=== PATIENT | female | born 1945 | race Caucasian/White ===

== ENCOUNTER 2021-08-01 10:34 | Outpatient (REF) | payer OTHER, SELFPAY ==
[2021-08-01 22:12] LABS: Hemoglobin A1C 6.1 % (<5.7)
[2021-08-01 22:17] LABS: ALT 36 U/L (14-59); AST 24 U/L (15-37); Albumin 3.9 g/dL (3.4-5.0); Alkaline Phosphatase 87 U/L (46-116); Anion Gap 7.5 mmol/L (3-11); BUN 15 mg/dL (7-18); Bilirubin, Total 0.6 mg/dL (0.2-1.0); CO2 28.5 mmol/L (21.0-32.0); CREATININE 0.8 mg/dL (0.55-1.02); Calcium 8.9 mg/dL (8.5-10.1); Calculated LDL 91 mg/dL (<100); Chloride 105 mmol/L (98-107); Cholesterol 187 mg/dL (<200); Glucose 111 mg/dL (74-106); HDL Cholesterol 56 mg/dL (40-60); Potassium 3.7 mmol/L (3.5-5.1); Sodium 141 mmol/L (136-145); Total Protein 6.7 g/dL (6.4-8.2); Triglyceride 201 mg/dL (<150)
== END 2021-08-01 10:35 | disposition home or self-care (01) ==
LOC: NCHCN 10:34
PROVIDERS: Visit Provider Nurse Practitioner Family
DX: I10 Essential (primary) hypertension (principal); E78.5 Hyperlipidemia, unspecified
CPT/HCPCS: 80053; 80061; 83036

== ENCOUNTER 2022-07-10 15:50 | Outpatient (REF) | payer MEDICARE, SELFPAY ==
[2022-07-10 20:33] LABS: ALT 41 U/L (14-59); AST 31 U/L (15-37); Albumin 4.2 g/dL (3.4-5.0); Alkaline Phosphatase 93 U/L (46-116); Anion Gap 8.6 mmol/L (3-11); BUN 12 mg/dL (7-18); Bilirubin, Total 0.5 mg/dL (0.2-1.0); CO2 29.4 mmol/L (21.0-32.0); CREATININE 0.8 mg/dL (0.55-1.02); Calcium 9.8 mg/dL (8.5-10.1); Chloride 105 mmol/L (98-107); Estimated GFR 76.31 (mL/min/1.73m2); Glucose 116 mg/dL (74-106); Potassium 3.7 mmol/L (3.5-5.1); Sodium 143 mmol/L (136-145); Total Protein 7.6 g/dL (6.4-8.2)
== END 2022-07-10 15:51 | disposition home or self-care (01) ==
LOC: NCHCN 15:50
PROVIDERS: Visit Provider Nurse Practitioner Family
DX: I10 Essential (primary) hypertension (principal)
CPT/HCPCS: 80053

== ENCOUNTER 2022-07-24 09:26 | Outpatient (REF) | payer MEDICARE, SELFPAY ==
[2022-07-24 19:57] LABS: Calculated LDL 56 mg/dL (<100); Cholesterol 170 mg/dL (<200); HDL Cholesterol 57 mg/dL (40-60); Triglyceride 289 mg/dL (<150)
== END 2022-07-24 09:27 | disposition home or self-care (01) ==
LOC: NCHCN 09:26
PROVIDERS: Visit Provider Physician Assistant
DX: E78.5 Hyperlipidemia, unspecified (principal)
CPT/HCPCS: 80061

== ENCOUNTER 2022-09-03 18:30 | Outpatient (REF) | payer MEDICARE, SELFPAY ==
--- OUTSIDE RECORDS SUMMARY | 2022-09-03 18:33 | XMS_ITS | Continuity of Care Document ---
Author Name Unknown Organization [facility] Address [address] [place] [address] Care Team Providers Care [employer] Power [employer] Manager Name Role Phone Angella Shah Primary Care Physician Encounter [facility] Date(s): 07/24/22 - 07/24/[address] [phone] Discharge Disposition: Home or Self Care Attending Physician: Angella Shah ARMHOLE PRESSER Admitting Physician: Angella Shah NP Referring Physician: Angella Shah ARMHOLE PRESSER Allergies, Adverse Reactions, Alerts Substance Reaction Severity Status penicillins Unknown Active sulfa drugs Unknown Active Assessment and Plan Future Appointments Immunizations Given and Recorded Vaccine Date Status Refusal Reason SARS-CoV-2 (COVID-19) mRNA-1273 vaccine 08/23/20 R ecorded SARS-CoV-2 (COVID-19) mRNA-1273 vaccine 07/26/20 R ecorded influenza virus vaccine, live 04/02/19 Recorded influenza virus vaccine, live 04/01/18 Recorded rubella virus vaccine 05/19/00 Recorded varicella virus vaccine 05/19/00 Recorded Social History Social History Type Response Sex Female Patient Care team information Care Team Personnel Name: Angella Shah ARMHOLE PRESSER Position: PowerChart View Only Member Role: Primary Care Physician Address: Address: [address] [place] [address] [place], [place] [address] Care Team Related Persons Name: ALYSHA LE Address: Home
--- OUTSIDE RECORDS SUMMARY | 2022-09-03 18:33 | XMS_ITS | Continuity of Care Document ---
Author Name Unknown Organization [facility] Address [address] [place] [address] Care Team Providers Care Rug Hooker Name Role Phone Angella Shah Primary Care Physician Encounter [facility] Date(s): 07/16/22 - 07/16/[address] [phone] Discharge Disposition: Home or Self Care Attending Physician: Angella Shah RESEARCH COMPLIANCE SPECIALIST Admitting Physician: Angella Shah RESEARCH COMPLIANCE SPECIALIST Referring Physician: Angella Shah RESEARCH COMPLIANCE SPECIALIST Allergies, Adverse Reactions, Alerts Substance Reaction Severity [...] information Care Team Personnel Name: Angella Shah RESEARCH COMPLIANCE SPECIALIST Position: PowerChart View Only Member Role: Primary Care Physician Address: Address: [address] [place], [place] [address] Care Team Related Persons Name: ALYSHA LE Address: Home
--- OUTSIDE RECORDS SUMMARY | 2022-09-03 18:33 | XMS_ITS | Continuity of Care Document ---
Author Name Unknown Organization [facility] Address [address] [place] [address] Care Team Providers Care News Broadcaster Name Role Phone Angella Shah Primary Care Physician Encounter [facility] Date(s): 08/21/22 - 08/22/[address] [phone] [place] Encounter Diagnosis Urinary retention(Discharge Diagnosis) - 08/21/22 Fecal impaction in rectum(Discharge Diagnosis) - 08/22/22 External hemorrhoids(Discharge Diagnosis) - 08/21/22 Hypokalemia(Discharge Diagnosis) - 08/22/22 HTN (hypertension)(Discharge Diagnosis) - 08/22/22 HLD (hyperlipidemia)(Discharge Diagnosis) - 08/22/22 GERD (gastroesophageal reflux disease)(Discharge Diagnosis) - 08/22/22 Chronic constipation(Discharge Diagnosis) - 08/22/22 Leukocytosis(Discharge Diagnosis) - 08/22/22 Discharge Disposition: Home or Self Care Attending Physician: Zhang Shaver MD Admitting Physician: Loida Huber NP Allergies, Adverse Reactions, Alerts Substance Reaction Severity Status penicillins Unknown Active sulfa drugs Unknown Active Assessment and Plan Future Appointments Functional Status 08/22/22 Living Environment No Living Environmen t Information Available Lives In Apartment Lives With Alone Living Situation Home independently Home Barriers None Patient's Responsibilities Driving, utilization management um nurse, Home management, Housework, Laundry, Meal preparation, Personal ADL 08/22/22 Breakfast Percent 25 08/21/22 Family Member Travel History No recent t ravel Recent Travel History No recent travel Other exposure to Infectious Disease Non e Immunizations Given and Recorded Vaccine Date Status Refusal Reason SARS-CoV-2 (COVID-19) mRNA-1273 vaccine 08/23/20 R ecorded SARS-CoV-2 (COVID-19) mRNA-1273 vaccine 07/26/20 R ecorded influenza virus vaccine, live 04/02/19 Recorded influenza virus vaccine, live 04/01/18 Recorded rubella virus vaccine 05/19/00 Recorded varicella virus vaccine 05/19/00 Recorded Medications Centrum Silver Ultra Women's 1 tab, Oral, Daily, 0 Refill(s) Start Date: 08/21/22 Status: Ordered hydroCHLOROthiazide 12.5 mg =, Oral, Daily, in AM, 0 Refill(s) Start Date: 08/21/22 Status: Ordered losartan 50 mg oral tablet 50 mg = 1 tab, Oral, Daily, 0 Refill(s) Start Date: 08/22/22 Status: Ordered omeprazole 20 mg oral delayed release tablet 20 mg = 1 tab, Oral, Daily, # 30 tab, 0 Refill(s), other reason (Rx) Start Date: 08/22/22 Stop Date: 09/21/22 Status: Ordered simvastatin 40 mg =, Oral, every night at bedtime, 0 Refill(s) Start Date: 08/21/22 Status: Ordered Problem List Condition Confirmation Course Effective Dates Status Health St [facility] Informant Chronic constipation Confirmed Active GERD (gastroesophageal reflux disease) Confirmed Active HLD (hyperlipidemia) Confirmed Active HTN (hypertension) Confirmed Active Results Laboratory List Name Date Automated Diff 08/22/22 CBC w/ Diff 08/22/22 Comprehensive Metabolic Panel 08/22/22 Magnesium Level 08/22/22 Basic Metabolic Panel (BMP) 08/22/22 Magnesium Level 08/21/22 SARS-CoV-2 (COVID-19) RNA (ID Now) 3 Urinalysis with Micro if Indicated and C ulture if Indicated 08/21/22 .Manual Differential ([facility]) 08/21/22 CBC w/ Diff 08/21/22 Comprehensive Metabolic Panel 08/21/22 Lactic Acid 08/21/22 Lipase Level 08/21/22 Most recent to oldest [Reference Range]: 1 2 3 WBC [5.0-10.0 x10^3/mcL] 11.4 x10^3/mcL *HI* (08/22/22 6:55 AM) 15.0 x10^3/mcL *HI* (08/21/22 3:22 PM) RBC [4.1-5.3 x10^6/mcL] 4.4 x10^6/mcL (08/22/22 6:55 AM) 4.7 x10^6/mcL (08/21/22 3:22 PM) Segs Man [40-75 %] 89 % *HI* (08/21/22 3:22 PM) Lymph Man [20-50 %] 5 % *LOW* (08/21/22 3:22 PM) Neutro Auto [40.0-75.0 %] 78.2 % *HI* (08/22/22 6:55 AM) Lymph Auto [20.0-50.0 %] 13.9 % *LOW* (08/22/22 6:55 AM) [place] Auto [2.0-15.0 %] 7.1 % (08/22/22 6:55 AM) Basophil Auto [0.0-1.0 %] 0.3 % (08/22/22 6:55 AM) [place] Man 4 % *NA* (08/21/22 3:22 PM) Eos Man 0 % *NA* (08/21/22 3:22 PM) BUN [7-18 mg/dL] 11 mg/dL (08/22/22 6:55 AM) 11 mg/dL (08/22/22 2:00 AM) 16 mg/dL (08/21/22 3:22 PM) UA Color Yellow (08/21/22 3:36 PM) Glucose Level [74-106 mg/dL] 128 mg/dL *HI* (08/22/22 6:55 AM) 119 mg/dL *HI* (08/22/22 2:00 AM) 148 mg/dL *HI* (08/21/22 3:22 PM) Potassium Level [3.5-5.1 mmol/L] 3.6 mmol/L (08/22/22 6:55 AM) 5.1 mmol/L (08/22/22 2:00 AM) 2.9 mmol/L *LOW* (08/21/22 3:22 PM) MCV [80.0-96.0] 90.4 (08/22/22 6:55 AM) 90.1 (08/21/22 3:22 PM) UA Urobilinogen Normal (08/21/22 3:36 PM) RBC Morph Normal (08/21/22 3:22 PM) UA Bili [Negative] Negative (08/21/22 3:36 PM) UA Ketones 1+ *ABN* (08/21/22 3:36 PM) AST [15-37 unit/L] 24 unit/L (08/22/22 6:55 AM) 29 unit/L (08/21/22 3:22 PM) ALT [14-59 unit/L] 36 unit/L (08/22/22 6:55 AM) 38 unit/L (08/21/22 3:22 PM) MCHC [31.0-35.0 g/dL] 35.1 g/dL *HI* (08/22/22 6:55 AM) 34.5 g/dL (08/21/22 3:22 PM) Sodium Level [136-145 mmol/L] 139 mmol/L (08/22/22 6:55 AM) 139 mmol/L (08/22/22 2:00 AM) 136 mmol/L (08/21/22 3:22 PM) UA Leuk Est Negative (08/21/22 3:36 PM) UA Nitrite Negative (08/21/22 3:36 PM) UA Glucose [Negative] Negative (08/21/22 3:36 PM) Hct [37.0-47.0 %] 39.6 % (08/22/22 6:55 AM) 42.0 % (08/21/22 3:22 PM) Lipase Level [16-77 unit/L] 34 unit/L (08/21/22 3:22 PM) Calcium Level [8.5-10.1 mg/dL] 8.6 mg/dL (08/22/22 6:55 AM) 8.2 mg/dL *LOW* (08/22/22 2:00 AM) 9.0 mg/dL (08/21/22 3:22 PM) Albumin Level [3.4-5.0 g/dL] 3.5 g/dL (08/22/22 6:55 AM) 3.9 g/dL (08/21/22 3:22 PM) Protein Total [6.4-8.2 g/dL] 6.7 g/dL (08/22/22 6:55 AM) 7.2 g/dL (08/21/22 3:22 PM) UA Protein Negative (08/21/22 3:36 PM) MCH [26.0-32.0 pg] 31.7 pg (08/22/22 6:55 AM) 31.1 pg (08/21/22 3:22 PM) Magnesium Level [1.8-2.4 mg/dL] 2.0 mg/dL (08/22/22 6:55 AM) 1.7 mg/dL *LOW* (08/21/22 9:09 PM) Neutro Absolute 8.9 x10^3/mcL *NA* (08/22/22 6:55 AM) Bilirubin Total [0.2-1.0 mg/dL] 0.7 mg/dL (08/22/22 6:55 AM) 0.6 mg/dL (08/21/22 3:22 PM) Hgb [12.0-16.0 g/dL] 13.9 g/dL (08/22/22 6:55 AM) 14.5 g/dL (08/21/22 3:22 PM) Alk Phos [46-146 unit/L] 75 unit/L (08/22/22 6:55 AM) 93 unit/L (08/21/22 3:22 PM) UA Blood Negative (08/21/22 3:36 PM) Band Man [0-5 %] 2 % (08/21/22 3:22 PM) UA Spec Grav 1.020 *NA* (08/21/22 3:36 PM) Platelets [130-450 x10^3/mcL] 206 x10^3/mcL (08/22/22 6:55 AM) 200 x10^3/mcL (08/21/22 3:22 PM) CO2 [21-32 mmol/L] 24 mmol/L (08/22/22 6:55 AM) 26 mmol/L (08/22/22 2:00 AM) 26 mmol/L (08/21/22 3:22 PM) Lactic Acid Lvl [0.7-2.0 mmol/L] 1.6 mmol/L (08/21/22 3:22 PM) UA pH 6.5 *NA* (08/21/22 3:36 PM) eGFR Non-AA [>=60] 90 (08/22/22 6:55 AM) 90 (08/22/22 2:00 AM) 82 (08/21/22 3:22 PM) eGFR AA [>=60] 90 (08/22/22 6:55 AM) 90 (08/22/22 2:00 AM) 82 (08/21/22 3:22 PM) UA Appear Clear (08/21/22 3:36 PM) Chloride Level [98-107 mmol/L] 105 mmol/L (08/22/22 6:55 AM) 106 mmol/L (08/22/22 2:00 AM) 99 mmol/L (08/21/22 3:22 PM) RDW-CV [11.7-17.0 %] 12.3 % (08/22/22 6:55 AM) 12.0 % (08/21/22 3:22 PM) Imm Gran Auto [0.0-0.9 %] 0.4 % (08/22/22 6:55 AM) Abs Neut Man 13.6 x10^3/mcL *NA* (08/21/22 3:22 PM) Creatinine Level [0.55-1.02 mg/dL] 0.70 mg/dL (08/22/22 6:55 AM) 0.70 mg/dL (08/22/22 2:00 AM) 0.75 mg/dL (08/21/22 3:22 PM) SARS-CoV-2 (COVID-19) RNA (ID Now) [Not Detected] Not Detected (08/21/22 6:39 PM) Baso Man [0-1 %] 0 % (08/21/22 3:22 PM) Eos, Auto [1.0-6.0 %] 0.1 % *LOW* (08/22/22 6:55 AM) Vital Signs Most recent to oldest [Reference Range]: 1 2 3 Temperature Temporal Artery [36-38 Deg C] 35.9 Deg C *LOW* (08/22/22 8:16 AM) 36.2 Deg C (08/22/22 2:38 AM) 36.3 Deg C (08/21/22 10:59 PM) Peripheral Pulse Rate [60-100 bpm] 65 bpm (08/22/22 8:16 AM) 69 bpm (08/22/22 2:38 AM) 71 bpm (08/21/22 10:59 PM) Heart Rate Monitored [60-100 bpm] 65 bpm (08/21/22 9:40 PM) 64 bpm (08/21/22 8:35 PM) 80 bpm (08/21/22 8:06 PM) Respiratory Rate [12-24 br/min] 16 br/min (08/22/22 8:16 AM) 18 br/min (08/22/22 2:38 AM) 18 br/min (08/21/22 10:59 PM) Blood Pressure [90-140/60-90 mmHg] 112/64mmHg (08/22/22 8:16 AM) 125/66mmHg (08/22/22 2:38 AM) 115/86mmHg (08/21/22 10:59 PM) Mean Arterial Pressure, Cuff [65-140 mmHg] 97 mmHg (08/21/22 8:06 PM) 87 mmHg (08/21/22 7:26 PM) 95 mmHg (08/21/22 5:11 PM) Mean Arterial Pressure Cuff 84 mmHg (08/22/22 2:38 AM) 90 mmHg (08/21/22 10:59 PM) Weight 69.300 kg (08/21/22 11:03 PM) Weight Dosing 69.300 kg (08/21/22 11:03 PM) 63.50 kg (08/21/22 2:25 PM) Weight Estimated 63.50 kg (08/21/22 2:20 PM) Height 155.000 cm (08/21/22 11:03 PM) Height/Length Dosing 155.000 cm (08/21/22 11:03 PM) 155.000 cm (08/21/22 2:25 PM) Body Mass Index 28.840 kg/m2 (08/21/22 11:03 PM) Height/Length Estimated 155.000 cm (08/21/22 2:20 PM) Social History Social History Type Response Tobacco Former tobacco user Tobacco Use:. 1 Sex Female 147 years ago Hospital Discharge Instructions Patient Education 08/22/2022 12:50:42 Constipation, Adult Constipation, Adult Constipation is when a person has fewer than three bowel movements in a week, has difficulty havinga bowel movement, or has stools (feces) that are dry, hard, or larger than normal. Constipation maybe caused by an underlying condition. It may become worse with age if a person takes certain medicines and does not take in enough fluids. Follow these instructions at home: Eating and drinking ??? Eat foods that have a lot of fiber, such as beans, whole grains, and fresh fruits and vegetables. ??? Limit foods that are low in fiber and high in fat and processed sugars, such as fried or sweet foods. These include yemeni fries, hamburgers, cookies, candies, and soda. ??? Drink enough fluid to keep your urine pale yellow. General instructions ??? Exercise regularly or as told by your health care provider. Try to do 150 minutes of moderate exercise each week. ??? Use the bathroom when you have the urge to go. Do not hold it in. ??? Take utdc-req-gpjuvqq and prescription medicines only as told by your health care provider. This includes any fiber supplements. ??? During bowel movements: ??? Practice deep breathing while relaxing the lower abdomen. ??? Practice pelvic floor relaxation. ??? Watch your condition for any changes. Let your health care provider know about them. ??? Keep all follow-up visits as told by your health care provider. This is important. Contact a health care provider if: ??? You have pain that gets worse. ??? You have a fever. ??? You do not have a bowel movement after 4 days. ??? You vomit. ??? You are not hungry or you lose weight. ??? You are bleeding from the opening between the buttocks (anus). ??? You have thin, pencil-like stools. Get help right away if: ??? You have a fever and your symptoms suddenly get worse. ??? You leak stool or have blood in your stool. ??? Your abdomen is bloated. ??? You have severe pain in your abdomen. ??? You feel dizzy or you faint. Summary ??? Constipation is when a person has fewer than three bowel movements in a week, has difficulty having a bowel movement, or has stools (feces) that are dry, hard, or larger than normal. ??? Eat foods that have a lot of fiber, such as beans, whole grains, and fresh fruits and vegetables. ??? Drink enough fluid to keep your urine pale yellow. ??? Take wxks-oly-ixmkjch and prescription medicines only as told by your health care provider. This includes any fiber supplements. This information is not intended to replace advice given to you by your health care provider. Make sure you discuss any questions you have with your health care provider. Document Revised: 03/22/2020 Document Reviewed: 03/22/2020 [employer] Patient Education ?? 2021 [employer] Follow Up Care 08/21/2022 14:20:26 With:Angella Shah FLAT SORTER PROCESSOR Address: [address] [place] [phone]- When:09/03/2022 13:00:00 Comments:HOSPITAL FOLLOW UP Discharge instructions * Katarzyna Godinez: PERFORM Event Display: Discharge Instructions Authored Date: [id number] ROSA ELENA LE :1945 Age:77 years Sex:Female Visit Date:08/21/2022 Primary Care Physician: Angella Shah FLAT SORTER PROCESSOR Hospital Discharge Instructions We would like to thank you for allowing us to assist you with your healthcare needs. The following includes patient education materials and information regarding your injury/illness. Your Next Steps Instructions From Your Care Team Call your primary care provider for: Temperature greater than 101F. Pain that does not go away. Persistent nausea, vomiting or constipation. Shortness of breath, with or without chest discomfort. Discharge Orders Discharge Activity Restrictions, No Restrictions Discharge Diet Instruction, Cardiac Diet, Increase hydration and fiber. Increase potassium foods. Discharge Patient Instructions, Advised daily medication for constipation and consider GI referral to evaluate for IBS with constipation. Patient will discuss with PCP. Follow Up Appointments Follow Up with??Angella Shah FLAT SORTER PROCESSOR When:??09/03/2022 02:00 PM EDT Why: HOSPITAL FOLLOW UP Where: [address] [place] [id number]- Medications What How Much When Instructions Next Dose Unchanged hydroCHLOROthiazide 12.5 Milligrams Oral (given by mouth) Every day in AM ?? 47 @9am Unchanged multivitamin with minerals (Centrum Silver Ultra Women's) 1 tab Oral (given by mouth) Every day 7 @ 9am Unchanged simvastatin 40 Milligrams Oral (given by mouth) Every night at bedtime /6 ?? What How Much When Comments Stop Taking esomeprazole 20 Milligrams Oral (given by mouth) Every morning Stop Taking losartan 50 Milligrams Oral (given by mouth) Every day at bedtime ?? Your Summary Your Care Team Admitting Physician - Loida Huber NP Attending Physician - Zhang Shaver MD Primary Care Physician - Angella Shah FLAT SORTER PROCESSOR Your Diagnosis Fecal impaction in rectum Urinary retention Leukocytosis External hemorrhoids Hypokalemia HTN (hypertension) HLD (hyperlipidemia) GERD (gastroesophageal reflux disease) Chronic constipation Discharge Vitals Temperature??(Temporal Artery) 96.6 ??F (35.9 ??C) Heart Rate??(Peripheral) 65 Respiratory Rate?? 16 Blood Pressure?? 112/64?? Height?? 61.02 in (155.000 cm) Weight?? 152.81 lb (69.300 kg) BMI?? 28.840 Allergies penicillins sulfa drugs Patient Name:ROSA ELENA LE I have received this information and my questions have been answered. Patient/Dental Hygiene Administrative Assistant Name: Patient/Dental Hygiene Administrative Assistant Signature: Relationship to Patient: Witness Name/Signature: Date: Electronically Signed on: 08/22/2022 14:03 EDTSigned by:REBECA Consult note * Vargas Gandhi MD: PERFORM Event Display: Consultation Note Generic Authored Date: [id number] ROSA ELENA LE :1945 Age:77 years Sex:Female Visit Date:08/21/2022 Primary Care Physician: Angella Shah NP Chief Complaint Patient has had difficult having BM, last normal BM was approx 2 days ago. Patient started having pain in her abd about 930 this morning. Unable to urinate as well. Has taken suppositories and laxitives with no relief History of Present Illness The patient is a very healthy-appearing 77-year-old white female??who was feeling well up until around 915 this morning. ??The patient states that??she??tried some warm water techniques to help with urination and??also tried a glycerin suppository, Dulcolax suppository,??enema??and??some sort of??mixture??that involved bleach to see if that would help her go.?? She said the pain became progressively worse that she was unable to go either with urination or??bowel movements. ??She contacted her primary care provider who suggested that they go to the emergency room.?? She tried to arrange for friends or family to provide transportation, but they were not immediately available. ??Eventually they were starting on their way to the hospital and her pain became??progressively more severe sitting up, so they??subsequently stopped??at an ambulance station and she was transported in the rest of the way in a lying down position.?? At the hospital, the patient underwent??a CT scan??and blood work which showed??a question of proctitis with possible ischemia with a large stool ball in the rectum??and a??white??blood cell count elevation of 15.4 thousand.?? Patient has since had a small amount ofconcentrated urine and a small bowel movement as well.?? Seems to feel much more comfortable now than when she was??at the peak of her pain earlier today and??at the time she was admitted to the emergency room.?? He also has a history of hypertension and is on losartan.?She also has elevated cholesterol and triglycerides??and is borderline diabetic. Review of Systems Rectal discomfort and cramping??that seem to be slowly improving. She has had chronic problems with urinating since her??vaginal hysterectomy for prolapse and bladder suspension.?? She occasionally has some problems with constipation. ??She says she will have??bowel movements during the day, but it seems to plug near her rectum??where she has trouble evacuating when it gets??to the point??of??the stool entering the rectal vault. Physical Exam Vitals & Measurements T:??35.6?C ??(Temporal Artery)?? HR:??74??(Monitored)?? RR:??20?? BP:??134/75?? SpO2:??99%?? HT:??155.000??cm?? WT:??63.50??kg??(Estimated)?? Pain Score:??8?? O2 Therapy:??Room air?? General:??It is a very healthy-appearing 77-year-old female??active walking 2 miles 3 times a week,mowing her lawn with a push mower and doing her chores of daily living. ??She normally lives by herself.?? He does have a vwguix-qy-ujf that was with her today and helping bring her in.?? Cardiovascular: She has a regular rate there was one sinus pause in listening to her heart, but no murmur was noted.?? Lungs: Are clear anteriorly Abdomen:??Bowel sounds are present, she is mildly distended but does not have a rigid abdomen.?? Onrectal exam she has some brown??almost gritty??soft stool, but also??has very large external hemorrhoids??edematous, but not thrombosed.?? Somewhat sensitive??rectal exam. ??I did take out 3 significant??this of the stool to see if that would help??her to??go.?? He has had 2 colonoscopies in the past with nothing being found as this colonoscopies were approximately 10 years apart. ??She said theysaw no??polyps or anything worrisome for cancer at that time. Assessment/Plan 1.??Rectal pain??K62.89 I think the patient's concerns with the rectal pain will be resolved if we can get her to eliminatethe stool ball from her rectum.?? We disimpacted some of the stool and I think she will respond to??suds enema to help eliminate the rest.?? There might be a slightly higher risk of injuring her colon with an enema, but I think the benefits far outweigh the potential harm as evacuating the rectum will probably relieve a lot of the discomfort. 2.??Urinary retention??R33.9 Has begun to urinate some. ??She may ultimately require a Rodriguez catheter. ??She said she was repeatedly asking for one when she initially came in.?? It might be worthwhile to do a bladder scan to seehow much urine is retained. ??If there is a large amount of urine she might benefit from a Rodriguez atleast overnight. 3.??External hemorrhoids??K64.4 External hemorrhoids are edematous but not thrombosed.?? A are uncomfortable to her??when having a rectal exam. ??I would suggest??sitz baths??3-4 times a day in warm to hot water??as??tolerable for the temperature.?? It would be permissible to add Epsom salts if??it is available.?? I would also recommend using some sort of??hemorrhoid cream such as Anusol or Proctofoam??whichever is available [facility]. ??The cream can be applied after she has finished her sitz baths.?? I believe it would be permissible to put her on clear liquids as I do not think she is an immediate danger??of perforation??by examining her, though the CAT scan??reading??is slightly more ominous. Problem List/Past Medical History Ongoing No qualifying data Historical No qualifying data Medications Inpatient cefTRIAXone metroNIDAZOLE, 500 mg= 100 mL, IV Piggyback, every 6 hr potassium chloride, 10 mEq= 100 mL, IV Piggyback, every 1 hr Home hydroCHLOROthiazide, See Instructions losartan, 25 mg simvastatin, See Instructions Allergies penicillins sulfa drugs Social History Alcohol 1-2 times per month Electronic Cigarette/Vaping Electronic Cigarette Use: Never. Tobacco Former tobacco user Tobacco Use:.- Comments: 47 years ago Immunizations Vaccine Date Status SARS-CoV-2 (COVID-19) mRNA-1273 vaccine 08/23/2020 Recorded SARS-CoV-2 (COVID-19) mRNA-1273 vaccine 07/26/2020 Recorded influenza virus vaccine, live 04/02/2019 Recorded influenza virus vaccine, live 04/01/2018 Recorded rubella virus vaccine Recorded varicella virus vaccine Recorded Electronically Signed on 08/21/22 06:53 PM Vargas Gandhi MD Pharmacology Progress note * Marce Pendleton PharmD: PERFORM Event Display: Pharmacy Progress Note Authored Date: [id number] Pharmacy Progress Note Med Rec updated with [employer] Electronically Signed on 08/22/22 01:10 PM Marce Pendleton PharmD Respiratory therapy Hospital Progress note * Radha Tran: PERFORM Event Display: Respiratory Therapy Progress Note Authored Date: [id number] ??ROSA ELENA LE 77 Years MEASURED Body Mass Index: 28.84 kg/m2 (08/21/22 23:03:00) Height: 155 cm (08/21/22 23:03:00) Weight: 69.3 kg (08/21/22 23:03:00) DOSING Height/Length Dosin cm (08/21/22 23:03:00) Weight Dosin.3 kg (08/21/22 23:03:00) Respiratory Protocol??Aerosol Therapy Assessment and Scoring Home Medication Routine: Lung History (1) Smoking history less than 1 pack/day, History of lung disease(Asthma) Breath Sounds (0) Clear in all bautista Respiratory Rate (0) Less than or equal to 18 Modified Paolo Scale or Observed Dyspnea (0) None Oxygen Therapy (0) Room air, at baseline home O2, post-op, or CHF Home Respiratory Medications (0) None Inhaler Use Assessment ? Clinically Stable? Yes? Can take a slow deep breath on command? Yes? Can perform a 3 second breath hold? Yes Respiratory total Score: 1 Respiratory Guidelines 0-2 pts - No Therapy indicated Electronically Signed on 08/22/22 05:37 AM Radha Tran Progress note * Vargas Gandhi MD: PERFORM Event Display: Progress Note - Physician Authored Date: [id number] ROSA ELENA LE :1945 Age:77 years Sex:Female Visit Date:08/21/2022 Primary Care Physician: Angella Shah FLAT SORTER PROCESSOR Subjective The patient is feeling much better today. ??Her??bowels have moved??times and she is urinating without problems. ??In fact she??had more??output??than intake. Review of Systems Pain and pressure are alleviated around her hemorrhoids she states Objective Vitals & Measurements T:??36.2?C ??(Temporal Artery)?? TMIN:??35.6?C ??(Temporal Artery)?? TMAX:??36.3?C ??(Temporal Artery)?? HR:??69??(Peripheral)?? RR:??18?? BP:??125/66?? SpO2:??94%?? HT:??155.000??cm?? WT:??69.300??kg?? BMI:??28.840?? Pain Score:??8?? O2 Therapy:??Room air?? Physical Exam General:??A very comfortable smiling white female in no acute distress. Cardiovascular: Regular Lungs clear Abdomen is benign Assessment/Plan 1.??Fecal impaction in rectum??K56.41 Partially??disimpacted and subsequent??bowel movements??spontaneously 2.??Urinary retention??R33.9 Urinating better 3.??Leukocytosis??D72.829 Labs pending 4.??External hemorrhoids??K64.4 Less??pressure??in the rectum 5.??Hypokalemia??E87.6 Labs pending 6.??HTN (hypertension)??I10 Seems controlled 7.??HLD (hyperlipidemia)??E78.5 8.??GERD (gastroesophageal reflux disease)??K21.9 9.??Chronic constipation??K59.09 Orders: Preparation H, 1 moira, [place], Ointment, QID, PRN inflammation, First Dose: 08/21/22 19:04:00 EDT, STAT Diet Order, 08/22/22 7:06:00 EDT, Regular Sitz Bath, 08/21/22 19:02:00 EDT, QID, 15 to thilry minutes in warm to hot water as tolerated. may add epsom salts to water if available Plan: I feel the patient's diet can be advanced to regular diet and??and I??proceeded in ordering that for her.?? If she tolerates her diet I see no reason she cannot go home. ??She actually has an appointment for our office next week for a??cyst removal.?? If her potassium is low, I defer to the hospitalist for??further management for that. ??She is on??chlorothiazide which may be impacting that??level. Electronically Signed on 08/22/22 07:11 AM GandhiRiki varmaon M MD History and physical note * Loida Huber FLAT SORTER PROCESSOR: PERFORM, MODIFY Event Display: History and Physical Authored Date: [id number] ROSA ELENA LE :1945 Age:77 years Sex:Female Visit Date:08/21/2022 Primary Care Physician: Angella Shah [employer] Chief Complaint had a hard time having a bowel movement, could not urinate History of Present Illness Pt is a 77-yr-old female with a PMH of?? Constipation, GERD,?? HTN & HLD who presented to the ED due to inability to have a bowel movement, which was also causing her not to be able to urinate. Pt states that??she took several laxatives this morning involving glycerine suppository, miralax and enema without any results. Later on she had the urge to have a BM but she?? developed intense pain in her rectum due to hemorrhoids and the hard BM.?? Her pain was intolerable and therefore came to?? the ED. She denied the associated symptoms of?? nausea, vomiting, fevers, chills, and generalized abdominal pain.?At the ED,?? notable abnormal labs: WBC -15,000??&??K - 2.9. She had abdominal CT which showed moderate to large quantity of fecal matter within the rectum.??There were other worrisome findings that were felt to be concerning for proctitis or ischemia. ERP consulted Gen surgeon ??who evaluated the pt at the ED. She was disimpacted at the??ED??with the plan to administer SSE but her bowel moved spontaneously without additional use of stimulant laxative.??The pt reported having??a lot of relief and??was able to urinate normally. She was repleted for her low K??and admitted briefly to trend the rest of the labs and to establish treatment of??the hemorrhoids. ? Review of Systems Constitutional:?No??fevers,?No??chills,?No??sweats Eye:?No??recent visual problems ENT:?No??ear pain,?No??nasal congestion,?No??sore throat Respiratory:?No??shortness of breath,?No??cough Cardiovascular:?No??Chest pain,?No??palpitations,?No??syncope Gastrointestinal:?Nonausea,?No??vomiting,?No??diarrhea Genitourinary:?No??hematuria Fahad/Lymph:?No??bruising tendency,?No??swollen lymph glands Endocrine:?No??excessive thirst,??No??excessive hunger Musculoskeletal:??No??back pain,??No??neck pain,??No??joint pain,??No??muscle pain,??No??decreased range of motion Integumentary:?No??rash,?No??pruritus,?No??abrasions Neurologic: Alert & oriented X 4 Psychiatric:?No??anxiety,?No??depression Physical Exam Vitals & Measurements T:??36.3?C ??(Temporal Artery)?? TMIN:??35.6?C ??(Temporal Artery)?? TMAX:??36.3?C ??(Temporal Artery)?? HR:??71??(Peripheral)?? RR:??18?? BP:??115/86?? SpO2:??98%?? HT:??155.000??cm?? WT:??69.300??kg?? BMI:??28.840?? Pain Score:??8?? O2 Therapy:??Room air?? General: Alert and oriented,?No??acute distress Eye: PERRL HENT: Normocephalic, clear tympanic membranes,? Neck: Supple, non-tender,?No??carotid bruits,?No??JVD,?No??lymphadenopathy Lungs:??Clear to auscultation?? Respiration:??Non-Labored Heart:?Normal?? rate,?Regular??rhythm,?No??murmur,?No??gallop,?No??edema Abdomen: Soft, non-tender, non-distended,?Normal?? bowel sounds,?No??masses Musculoskeletal:?Normal?? range of motion and strength,?No??tenderness,?No??swelling Skin: Skin is warm, dry and pink,?No??rashes,?No??lesions Neurologic: Awake, alert and oriented X4 Assessment/Plan 1.??Fecal impaction in rectum??K56.41 -Did not require additional stimulant laxative??after disimpaction at the ED as she was able to have a lg BM spontaneously. ?? 2.??Urinary retention??R33.9 -Relieved with fecal impaction. UA -ve ?? 3.??Leukocytosis??D72.829 - Is likely stress induced from constipation. No fevers. is not ill appearing. UA was negative. Started on empiric ax at the ED with Rocephin and Flagyl for concern of intra-abdominal infection. Trend labs. ?? 4.??External hemorrhoids??K64.4 - Gen Surgery recs;?sitz baths??3-4 times a day in warm to hot water??as??tolerable for the temperature, hemorrhoid cream such as Anusol or Proctofoam-??The cream can be applied after she has finished her sitz baths.? 5.??Hypokalemia??E87.6 -2.9, and repleted with 40kcl IV. Mg- minimally low at 1.7 and is on oral replacement at home. ?? 6.??HTN (hypertension)??I10 -Continue Losartan 50mg daily. On Hctz 12.5 Mg daily. Consider changing to potassium sparing diuretic or if continues with HCTZ, provide oral KCL replacement. ?? 7.??HLD (hyperlipidemia)??E78.5 -Simvastatin 40mg daily HS. ?? 8.??GERD (gastroesophageal reflux disease)??K21.9 -Omeprazole 20 daily. ?? 9.??Chronic constipation??K59.09 -Has her home regimen of laxatives. ?? Orders: acetaminophen, 1,000 mg = 2 tab, Oral, Tab, every 6 hr, PRN pain, mild, First Dose: 08/21/22 21:06:00 EDT, Routine atorvastatin, 20 mg = 2 tab, Oral, Tab, Daily, First Dose: 08/22/22 17:00:00 EDT, Routine hydroCHLOROthiazide, 12.5 mg = 1 cap, Oral, Cap, Daily, First Dose: 08/22/22 9:00:00 EDT, Routine Toradol, 30 mg = 1 mL, IV Push, Soln, every 6 hr, PRN pain, moderate, First Dose: 08/21/22 21:06:00EDT, Routine lidocaine 1% injectable solution, 5 mg 0.5 mL, Intradermal, Soln, As Directed, PRN other (see comment), First Dose: 08/21/22 21:06:00 EDT, Routine losartan, 50 mg = 1 tab, Oral, Tab, Daily, First Dose: 08/22/22 9:00:00 EDT, Routine ondansetron, 4 mg = 2 mL, IV Push, Soln, every 6 hr, PRN nausea/vomiting, First Dose: 08/21/22 21:06:00 EDT, Routine pantoprazole, 20 mg, Oral, Tab, Daily, First Dose: 08/22/22 6:00:00 EDT, Routine Normal Saline Flush, 10 mL, IV Push, Soln, every 12 hr (javi), First Dose: 08/22/22 9:00:00 EDT, Routine Sodium Chloride 0.9% 1,000 mL, Total Volume (mL): 1,000, 1,000 mL, Soln-IV, IV, 30 mL/hr, Start Date: 08/21/22 21:06:00 EDT, 63.5 kg, Populate Charting Weight From Order, 1.65, m2 Sodium Chloride 0.9% with KCl 40 mEq/L 1,000 mL, Total Volume (mL): 1,000, 1,000 mL, Soln-IV, IV, 100 mL/hr, Start Date: 08/21/22 21:06:00 EDT, 63.5 kg, Populate Charting Weight From Order, 1.65, m2 Ambulate, 08/21/22 21:06:00 EDT, PRN, 3 times daily Basic Metabolic Panel, Blood, Timed Study, 08/21/22 22:00:00 EDT, Once, Lab Collect CBC w/ Diff, Blood, Routine, 08/22/22 6:00:00 EDT, every morning, for 3 days, Lab Collect Comprehensive Metabolic Panel, Blood, Routine, 08/22/22 6:00:00 EDT, every morning, for 3 days, LabCollect Diet Order, 08/21/22 21:06:00 EDT, Clear Liquids Intake and Output, 08/21/22 21:06:00 EDT, every 8 hrs, Constant Indicator, 08/21/22 21:06:00 EDT Magnesium Level, Blood, Routine, 08/22/22 6:00:00 EDT, Once, Lab Collect PSO Place in Observation, Observation, Observation, Zhang Shaver MD, 08/21/22 21:02:00 EDT, 08/21/22 21:02:00 EDT, 08/21/22 21:02:00 EDT, 1 midnight or less Resuscitation Status, 08/21/22 21:06:00 EDT, Full Code RT Eval and Treat Protocol, 08/21/22 21:06:00 EDT, Stop date 08/21/22 21:06:00 EDT Up with Assistance, 08/21/22 21:06:00 EDT, Constant Order Vital Signs, 08/21/22 21:06:00 EDT, Constant order, every 4 hrs Weight, 08/21/22 21:06:00 EDT, Daily Problem List/Past Medical History Ongoing Chronic constipation GERD (gastroesophageal reflux disease) HLD (hyperlipidemia) HTN (hypertension) Historical No qualifying data Medications Inpatient acetaminophen, 1000 mg= 2 tab, Oral, every 6 hr, PRN atorvastatin, 20 mg= 2 tab, Oral, Daily cefTRIAXone hydroCHLOROthiazide, 12.5 mg= 1 cap, Oral, Daily lidocaine 1% injectable solution, 5 mg= 0.5 mL, Intradermal, As Directed, PRN losartan, 50 mg= 1 tab, Oral, Daily metroNIDAZOLE, 500 mg= 100 mL, IV Piggyback, every 6 hr Normal Saline Flush, 10 mL, IV Push, every 12 hr (javi) ondansetron, 4 mg= 2 mL, IV Push, every 6 hr, PRN pantoprazole, 20 mg, Oral, Daily Preparation H, 1 moira, IA, QID, PRN Sodium Chloride 0.9% 1,000 mL, 1000 mL, IV Sodium Chloride 0.9% with KCl 40 mEq/L 1,000 mL, 1000 mL, IV Toradol, 30 mg= 1 mL, IV Push, every 6 hr, PRN Home Centrum Silver Ultra Women's, 1 tab, Oral, Daily esomeprazole, 20 mg, Oral, every morning hydroCHLOROthiazide, 12.5 mg, Oral, Daily losartan, 50 mg, Oral, Daily simvastatin, 40 mg, Oral, every night at bedtime Allergies penicillins sulfa drugs Social History Alcohol 1-2 times per month Electronic Cigarette/Vaping Electronic Cigarette Use: Never. Tobacco Former tobacco user Tobacco Use:.- Comments: 47 years ago Immunizations Vaccine Date Status SARS-CoV-2 (COVID-19) mRNA-1273 vaccine 08/23/2020 Recorded SARS-CoV-2 (COVID-19) mRNA-1273 vaccine 07/26/2020 Recorded influenza virus vaccine, live 04/02/2019 Recorded influenza virus vaccine, live 04/01/2018 Recorded rubella virus vaccine Recorded varicella virus vaccine Recorded Lab Results Last 72 Hours?? Chemistry Event Name?? Event Result?? Date/Time?? Sodium Level 136 mmol/L 08/21/22 15:22:00 Potassium Level 2.9 mmol/L??Low 08/21/22 15:22:00 Chloride Level 99 mmol/L 08/21/22 15:22:00 CO2 26 mmol/L 08/21/22 15:22:00 Alk Phos 93 unit/L 08/21/22 15:22:00 AST 29 unit/L 08/21/22 15:22:00 ALT 38 unit/L 08/21/22 15:22:00 BUN 16 mg/dL 08/21/22 15:22:00 Glucose Level 148 mg/dL??High 08/21/22 15:22:00 Creatinine Level 0.75 mg/dL 08/21/22 15:22:00 eGFR AA 82 08/21/22 15:22:00 eGFR Non-AA 82 08/21/22 15:22:00 Calcium Level 9 mg/dL 08/21/22 15:22:00 Protein Total 7.2 g/dL 08/21/22 15:22:00 Albumin Level 3.9 g/dL 08/21/22 15:22:00 Bilirubin Total 0.6 mg/dL 08/21/22 15:22:00 Lactic Acid Lvl 1.6 mmol/L 08/21/22 15:22:00 Lipase Level 34 unit/L 08/21/22 15:22:00 Magnesium Level 1.7 mg/dL??Low 08/21/22 21:09:13 ? Hematology Event Name?? Event Result?? Date/Time?? WBC 15 x10^3/mcL??High 08/21/22 15:22:00 RBC 4.7 x10^6/mcL 08/21/22 15:22:00 Hgb 14.5 g/dL 08/21/22 15:22:00 Hct 42 % 08/21/22 15:22:00 MCV 90.1 08/21/22 15:22:00 MCH 31.1 pg 08/21/22 15:22:00 MCHC 34.5 g/dL 08/21/22 15:22:00 RDW-CV 12 % 08/21/22 15:22:00 Platelets 200 x10^3/mcL 08/21/22 15:22:00 Segs Man 89 %??High 08/21/22 15:22:00 Lymph Man 5 %??Low 08/21/22 15:22:00 [place] Man 4 % 08/21/22 15:22:00 Eos Man 0 % 08/21/22 15:22:00 Baso Man 0 % 08/21/22 15:22:00 Band Man 2 % 08/21/22 15:22:00 Abs Neut Man 13.6 x10^3/mcL 08/21/22 15:22:00 RBC Morph Normal 08/21/22 15:22:00 ? Urinalysis Event Name?? Event Result?? Date/Time?? UA Color YELLOW. 08/21/22 15:36:00 UA Appear CLEAR. 08/21/22 15:36:00 UA Glucose NEGATIVE 08/21/22 15:36:00 UA Bili NEGATIVE 08/21/22 15:36:00 UA Ketones 1+ Abnormal 08/21/22 15:36:00 UA Spec Grav 1.020 08/21/22 15:36:00 UA Blood NEGATIVE 08/21/22 15:36:00 UA pH 6.5 08/21/22 15:36:00 UA Protein NEGATIVE 08/21/22 15:36:00 UA Urobilinogen 0.2 Uro 08/21/22 15:36:00 UA Nitrite NEGATIVE 08/21/22 15:36:00 UA Leuk Est NEGATIVE 08/21/22 15:36:00 ? All Other Results Event Name?? Event Result?? Date/Time?? SARS-CoV-2 (COVID-19) RNA (ID Now) Not Detected 08/21/22 18:39:40 ? Diagnostic Results ?? CT Abdomen and Pelvis w/ Contrast No PO Addendum created by Buzz Huizar MD on 08/21/2022 5:02:16 PM EDT: THIS REPORT CONTAINS FINDINGS THAT MAY BE CRITICAL TO PATIENT CARE.?? The findings were verbally communicated via telephone conference at?? 5:02 PM EST on 08/21/2022 with Alex Jama.?? The findings were acknowledged and understood. ? Initial report created on 08/21/2022 5:00:09 PM EDT: ?? PROCEDURE INFORMATION:?? Exam: CT Abdomen And Pelvis With Contrast?? Exam date and time: 08/21/2022 4:30 PM?? Age: 77 years old?? Clinical indication: Lower abd pain? TECHNIQUE:?? Imaging protocol: Computed tomography of the abdomen and pelvis with?? contrast.?? Radiation optimization: All CT scans at this facility use at least?? one of these dose optimization techniques: automated exposure?? control; mA and/or kV adjustment per patient size (includes targeted?? exams where dose is matched to clinical indication); or iterative?? reconstruction.?? Contrast material: OMNI 350; Contrast volume: 90 ml; Contrast route:?? INTRAVENOUS (IV); ? REPORTING DATA:?? Count of CT and Cardiac NM exams in prior 12 months: This patient has?? received 0 known CTs and 0 known cardiac nuclear medicine studies in?? the 12 months prior to the current study.? COMPARISON:?? No relevant prior studies available.? FINDINGS:?? Liver: Normal. No mass.?? Gallbladder and bile ducts: Normal. No calcified stones. No ductal?? dilation.?? Pancreas: Normal. No ductal dilation.?? Spleen: Normal. No splenomegaly.?? Adrenal glands: Normal. No mass.?? Kidneys and ureters: Normal. No hydronephrosis.?? Stomach and bowel: Stomach has very little fluid within it. There is?? uniform wall thickening without definite ulceration. No evidence for?? small bowel obstruction. The wall is normal thickness. The colon has?? a moderate amount of feces in the ascending portion. Descending?? portion of the colon has very little fluid within it. There is?? scattered colonic diverticula. The rectum has a large quantity of?? feces. Wall is thickened and there is pneumatosis. There is some?? inflammation within the perirectal fat and presacral fluid worrisome?? for proctitis/ischemia. There is a tiny amount of free fluid in the?? left portion of the pelvis near the urinary bladder and rectosigmoid?? junction.?? Appendix: A normal appendix is identified.? Intraperitoneal space: No free air.?? Vasculature: The vasculature demonstrates diffuse moderate?? atherosclerotic calcification.?? Lymph nodes: Unremarkable. No enlarged lymph nodes.?? Urinary bladder: Unremarkable as visualized.?? Reproductive: There has been a hysterectomy.?? Bones/joints: Unremarkable. No acute fracture.?? Soft tissues: Unremarkable.? IMPRESSION:?? 1. ?? Fkqyovaj-mx-[id number] quantity of feces within the rectum. The wall?? shows some thickening pneumatosis and some stranding within the?? surrounding fat with presacral fluid worrisome for proctitis or?? ischemia.?? 2. ?? Moderate atherosclerotic peripheral vascular disease.?? 3. ?? Uncomplicated colonic diverticulosis.? Report signed by: Buzz Huizar On 08/21/2022 ??17:02:16 ? Electronically Signed on 08/22/22 01:54 AM Loida Huber [employer] Electronically Signed on 08/22/22 02:27 PM Zhang Shaver MD Discharge summary * Zhang Shaver MD: PERFORM Event Display: Discharge Summary Authored Date: [id number] ROSA ELENA LE :1945 Age:77 years Sex:Female Visit Date:08/21/2022 Primary Care Physician: Angella Shah NP Hospital Course Discharge Summary ?? Date of admission:??08/21/2022 ?? Date of discharge:??08/22/2022 ?? Discharge diagnoses:??Obstipation with fecal impaction,??Chronic constipation with??IBS symptoms, Hypertension, Hyperlipidemia, Hypokalemia ?? Consultations:??Surgery, Dr. Gandhi ?? Operations/procedures:??Disimpaction of??rectal stool??in ED ?? Summary of presentation and course: This is a 77-year-old lady who has a history of??chronic constipation with??cramps??but has never had??severe??fecal impaction as she does??on this presentation.?? She was disimpacted and is moving her bowels well and??feels back to baseline. ??She was transiently placed on IV Flagyl with Rocephin??but a urinalysis was??normal with urinary retention secondary to??fecal impaction??and antibiotic would not be continued as an outpatient. ??She was having no rectal pain??(see??CT abdomen pelvis report). ??She did have??a low potassium on??hydrochlorothiazide for hypertension chronically and should increase her potassium diet and follow-up lab with PCP to adjust. ??I also advise she have her PCPrefer to GI??specialty??to review for IBS with constipation as a possible diagnosis and treatment.?? She could intermittently??cleanse her colon??with??pre-colonoscopy??bowel prep??though this may beharsh.?? She would do better to have continuous??daily cathartics that worked well on Metamucil with increased fluids.?? Her labs were??stable at discharge??patient was not directed to have PCP follow-up on electrolytes on hydrochlorothiazide.?? Exam was stable??and essentially normal. ?? Position: Patient is??to discharge home to care of family with??cardiac diet with increased fiber, increase??hydration??and??increase potassium foods. ??She will see surgery and follow-up??as scheduled and should may be??see gastroenterology??specialty care??or discuss treatment of IBS with constipation with surgeon.?? Prognosis fair. ??She is a full code. ?? Greater than 30 minutes was spent on the day of discharge in coordinating care and arranging outpatient follow-up. Physical Exam Vitals & Measurements T:??35.9?C ??(Temporal Artery)?? TMIN:??35.6?C ??(Temporal Artery)?? TMAX:??36.3?C ??(Temporal Artery)?? HR:??65??(Peripheral)?? RR:??16?? BP:??112/64?? SpO2:??95%?? HT:??155.000??cm?? WT:??69.300??kg?? BMI:??28.840?? Pain Score:??0?? O2 Therapy:??Room air?? : Patient??appears appropriate age, alert and oriented x3 and in no acute distress. ??She is short stature and moderately obese. HEENT: Normocephalic,??pupils equal and react to light symmetrically, extraocular movement tact andsclera anicteric. ??Oropharynx with moist mucosa. Neck: Supple without JVD. Back: Normal posture without CVA tenderness. Lungs: Fair aeration and clear to auscultation and percussion. Breast: Exam deferred. Heart: Regular rate and rhythm with no murmurs gallops appreciated. Abdomen:??Obese contour, soft and nontender to palpation with no guarding or rebound. ??No palpablehepatosplenomegaly. ??Bowel sounds positive in all quadrants. ??No tympany to percussion. Genitalia/rectal: Exam deferred. Skin: Normal color, warm and dry. Extremities: Without clubbing, cyanosis or pitting edema. ??Peripheral pulses intact. Neuro: Cranial 2-12 grossly intact, no focal motor deficits. ??No tremor. Psych: Normal affect and mood.?? No abnormal thought processes. ??Remote and recent memory intact. Medications Inpatient acetaminophen, 1000 mg= 2 tab, Oral, every 6 hr, PRN atorvastatin, 20 mg= 2 tab, Oral, Daily cefTRIAXone, 2 g= 50 mL, IV Piggyback, every 24 hr hydroCHLOROthiazide, 12.5 mg= 1 cap, Oral, Daily lidocaine 1% injectable solution, 5 mg= 0.5 mL, Intradermal, As Directed, PRN losartan, 50 mg= 1 tab, Oral, Daily metroNIDAZOLE, 500 mg= 100 mL, IV Piggyback, every 6 hr Normal Saline Flush, 10 mL, IV Push, every 12 hr (javi) ondansetron, 4 mg= 2 mL, IV Push, every 6 hr, PRN pantoprazole, 20 mg= 1 tab, Oral, Daily Preparation H, 1 moira, IA, QID, PRN Sodium Chloride 0.9% 1,000 mL, 1000 mL, IV Toradol, 30 mg= 1 mL, IV Push, every 6 hr, PRN Home Centrum Silver Ultra Women's, 1 tab, Oral, Daily hydroCHLOROthiazide, 12.5 mg, Oral, Daily simvastatin, 40 mg, Oral, every night at bedtime Social History Alcohol 1-2 times per month Electronic Cigarette/Vaping Electronic Cigarette Use: Never. Tobacco Former tobacco user Tobacco Use:.- Comments: 47 years ago Lab Results Last 48 Hours?? Chemistry ? Event Name?? Event Result?? Date/Time?? Sodium Level 139 mmol/L 08/22/22 06:55:00 Potassium Level 3.6 mmol/L 08/22/22 06:55:00 Chloride Level 105 mmol/L 08/22/22 06:55:00 CO2 24 mmol/L 08/22/22 06:55:00 Alk Phos 75 unit/L 08/22/22 06:55:00 AST 24 unit/L 08/22/22 06:55:00 ALT 36 unit/L 08/22/22 06:55:00 BUN 11 mg/dL 08/22/22 06:55:00 Glucose Level 128 mg/dL??High 08/22/22 06:55:00 Creatinine Level 0.7 mg/dL 08/22/22 06:55:00 eGFR AA 90 08/22/22 06:55:00 eGFR Non-AA 90 08/22/22 06:55:00 Calcium Level 8.6 mg/dL 08/22/22 06:55:00 Protein Total 6.7 g/dL 08/22/22 06:55:00 Albumin Level 3.5 g/dL 08/22/22 06:55:00 Bilirubin Total 0.7 mg/dL 08/22/22 06:55:00 Lactic Acid Lvl 1.6 mmol/L 08/21/22 15:22:00 Lipase Level 34 unit/L 08/21/22 15:22:00 Magnesium Level 2 mg/dL 08/22/22 06:55:00 ? Hematology ? Event Name?? Event Result?? Date/Time?? WBC 11.4 x10^3/mcL??High 08/22/22 06:55:00 RBC 4.4 x10^6/mcL 08/22/22 06:55:00 Hgb 13.9 g/dL 08/22/22 06:55:00 Hct 39.6 % 08/22/22 06:55:00 MCV 90.4 08/22/22 06:55:00 MCH 31.7 pg 08/22/22 06:55:00 MCHC 35.1 g/dL??High 08/22/22 06:55:00 RDW-CV 12.3 % 08/22/22 06:55:00 Platelets 206 x10^3/mcL 08/22/22 06:55:00 Neutro Auto 78.2 %??High 08/22/22 06:55:00 Lymph Auto 13.9 %??Low 08/22/22 06:55:00 [place] Auto 7.1 % 08/22/22 06:55:00 Eos, Auto 0.1 %??Low 08/22/22 06:55:00 Basophil Auto 0.3 % 08/22/22 06:55:00 Imm Gran Auto 0.4 % 08/22/22 06:55:00 Neutro Absolute 8.9 x10^3/mcL 08/22/22 06:55:00 Segs Man 89 %??High 08/21/22 15:22:00 Lymph Man 5 %??Low 08/21/22 15:22:00 [place] Man 4 % 08/21/22 15:22:00 Eos Man 0 % 08/21/22 15:22:00 Baso Man 0 % 08/21/22 15:22:00 Band Man 2 % 08/21/22 15:22:00 Abs Neut Man 13.6 x10^3/mcL 08/21/22 15:22:00 RBC Morph Normal 08/21/22 15:22:00 ? Urinalysis ? Event Name?? Event Result?? Date/Time?? UA Color YELLOW. 08/21/22 15:36:00 UA Appear CLEAR. 08/21/22 15:36:00 UA Glucose NEGATIVE 08/21/22 15:36:00 UA Bili NEGATIVE 08/21/22 15:36:00 UA Ketones 1+ Abnormal 08/21/22 15:36:00 UA Spec Grav 1.020 08/21/22 15:36:00 UA Blood NEGATIVE 08/21/22 15:36:00 UA pH 6.5 08/21/22 15:36:00 UA Protein NEGATIVE 08/21/22 15:36:00 UA Urobilinogen 0.2 Uro 08/21/22 15:36:00 UA Nitrite NEGATIVE 08/21/22 15:36:00 UA Leuk Est NEGATIVE 08/21/22 15:36:00 ? All Other Results ? Event Name?? Event Result?? Date/Time?? SARS-CoV-2 (COVID-19) RNA (ID Now) Not Detected 08/21/22 18:39:40 ? Diagnostic Results Exam: CT Abdomen And Pelvis With Contrast?? Exam date and time: 08/21/2022 4:30 PM?? Age: 77 years old?? Clinical indication: Lower abd pain? TECHNIQUE:?? Imaging protocol: Computed tomography of the abdomen and pelvis with?? contrast.?? Radiation optimization: All CT scans at this facility use at least?? one of these dose optimization techniques: automated exposure?? control; mA and/or kV adjustment per patient size (includes targeted?? exams where dose is matched to clinical indication); or iterative?? reconstruction.?? Contrast material: OMNI 350; Contrast volume: 90 ml; Contrast route:?? INTRAVENOUS (IV); ? REPORTING DATA:?? Count of CT and Cardiac NM exams in prior 12 months: This patient has?? received 0 known CTs and 0 known cardiac nuclear medicine studies in?? the 12 months prior to the current study.? COMPARISON:?? No relevant prior studies available.? FINDINGS:?? Liver: Normal. No mass.?? Gallbladder and bile ducts: Normal. No calcified stones. No ductal?? dilation.?? Pancreas: Normal. No ductal dilation.?? Spleen: Normal. No splenomegaly.?? Adrenal glands: Normal. No mass.?? Kidneys and ureters: Normal. No hydronephrosis.?? Stomach and bowel: Stomach has very little fluid within it. There is?? uniform wall thickening without definite ulceration. No evidence for?? small bowel obstruction. The wall is normal thickness. The colon has?? a moderate amount of feces in the ascending portion. Descending?? portion of the colon has very little fluid within it. There is?? scattered colonic diverticula. The rectum has a large quantity of?? feces. Wall is thickened and there is pneumatosis. There is some?? inflammation within the perirectal fat and presacral fluid worrisome?? for proctitis/ischemia. There is a tiny amount of free fluid in the?? left portion of the pelvis near the urinary bladder and rectosigmoid?? junction.?? Appendix: A normal appendix is identified.? Intraperitoneal space: No free air.?? Vasculature: The vasculature demonstrates diffuse moderate?? atherosclerotic calcification.?? Lymph nodes: Unremarkable. No enlarged lymph nodes.?? Urinary bladder: Unremarkable as visualized.?? Reproductive: There has been a hysterectomy.?? Bones/joints: Unremarkable. No acute fracture.?? Soft tissues: Unremarkable.? IMPRESSION:?? 1. ?? Ahasdmos-jn-tfosb quantity of feces within the rectum. The wall?? shows some thickening pneumatosis and some stranding within the?? surrounding fat with presacral fluid worrisome for proctitis or?? ischemia.?? 2. ?? Moderate atherosclerotic peripheral vascular disease.?? 3. ?? Uncomplicated colonic diverticulosis.?? Discharge Plan 1.??Fecal impaction in rectum??K56.41 Disimpacted by surgeon with follow-up surgery as an outpatient. ??Patient should discuss long-term cathartics with surgeon??and/or PCP with possible GI referral??for??by history IBS with constipationwith a strong family history of chronic constipation.?? Patient will try change in diet with increased hydration. 2.??Urinary retention??R33.9 Secondary to fecal impaction now resolved with patient not having evidence of UTI. ??Antibiotics will not be continued. 3.??Leukocytosis??D72.829 Slightly elevated with patient to follow-up clinically. 4.??External hemorrhoids??K64.4 Secondary to chronic constipation.?? Treat chronic constipation??and topical treatment as needed. 5.??Hypokalemia??E87.6 On chronic hydrochlorothiazide with patient to increase potassium diet and follow-up lab closely with PCP considering potassium supplement if needed. 6.??HTN (hypertension)??I10 Stable on medical therapy. ??Follow-up PCP. 7.??HLD (hyperlipidemia)??E78.5 Follow-up with PCP to adjust to goal. 8.??GERD (gastroesophageal reflux disease)??K21.9 Patient was placed on PPI during her short hospital stay but this will not be continued by prescription. ??Review with surgeon and??possible GI referral as to need to treat. 9.??Chronic constipation??K59.09 Family history and personal history of chronic constipation despite having daily stools.?? Advise GI referral and/or discuss IBS with constipation treatment with??local surgeon especially if further evaluation and endoscopies reveal no other etiology.?This could be a slow transit??problem??whichappears to run in the patient's family. Orders: Discharge Activity Restrictions, No Restrictions Discharge Diet Instruction, Cardiac Diet, Increase hydration and fiber. Increase potassium foods. Discharge Patient, 08/22/22 13:49:00 EDT, Home Independently Discharge Patient Instructions, Advised daily medication for constipation and consider GI referral to evaluate for IBS with constipation. Patient will discuss with PCP. All Diagnoses This Visit Fecal impaction in rectum Urinary retention Leukocytosis External hemorrhoids Hypokalemia HTN (hypertension) HLD (hyperlipidemia) GERD (gastroesophageal reflux disease) Chronic constipation Patient Instructions Call your primary care provider for: Temperature greater than 101F. Pain that does not go away. Persistent nausea, vomiting or constipation. Shortness of breath, with or without chest discomfort. Patient Education Constipation, Adult Follow Up With When Contact Information Angella Shah [employer] 09/03/2022 02:00 PM EDT [address] [place] [id number]- Additional Instructions: HOSPITAL FOLLOW UP Medication Reconciliation Unchanged [id number] Milligrams Oral (given by mouth) every day. in AM. ?? multivitamin with minerals (Centrum Silver Ultra Women's)1 tab Oral (given by mouth) every day. ?? Milligrams Oral (given by mouth) every night at bedtime. ?? Discontinued [id number] Milligrams Oral (given by mouth) every morning. ?? [id number] Milligrams Oral (given by mouth) every day. at bedtime. Electronically Signed on 08/22/22 02:04 PM Zhang Shaver MD Patient Care team information Care Team Personnel Name: Angella Shah [employer] Position: PowerChart View Only Member Role: Informed Provider Address: Address: [address] [place] [id number] Name: Dirk Smyth RN Position: Nurse Member Role: ED Nurse Name: Alex Jama MD Position: Physician Member Role: ED Physician Address: Address: [address] [place] [address] [address] [place] [address] [place] Care Team Related Persons Name: ALYSHA LE Address: Home
[2022-09-03 19:35] LABS: Potassium 3.8 mmol/L (3.5-5.1)
== END 2022-09-03 18:31 | disposition home or self-care (01) ==
LOC: NCHCN 18:30
PROVIDERS: PCP Nurse Practitioner Family; Visit Provider Nurse Practitioner Family
DX: E87.6 Hypokalemia (principal)
CPT/HCPCS: 84132

== ENCOUNTER 2023-01-09 10:47 | Outpatient (REF) | payer MEDICARE, SELFPAY ==
[2023-01-09 18:54] LABS: Bilirubin Negative (Negative); Blood Negative (Negative); Clarity Clear (Clear); Glucose Negative (Negative); Ketones Negative (Negative); Leukocyte Esterase Trace (Negative); Nitrite Negative (Negative); Urobilinogen 0.2 mg/dL (Up to 0.2); pH 6.5 (5-8)
[2023-01-09 19:03] LABS: Bacteria Rare HPF (Negative); C & S Indicated? Yes; Casts Negative LPF (Negative); Crystals Negative HPF (Negative); Epithelial Cells Rare HPF (Negative); Mucus Negative (Negative); RBC Negative HPF (0-2)
[2023-01-09 19:15] LABS: Anion Gap 7.6 mmol/L (3-11); BUN 13 mg/dL (7-18); CO2 28.4 mmol/L (21.0-32.0); CREATININE 0.7 mg/dL (0.55-1.02); Calcium 9.6 mg/dL (8.5-10.1); Chloride 104 mmol/L (98-107); Estimated GFR 89.58 (mL/min/1.73m2); Glucose 144 mg/dL (74-106); Potassium 3.5 mmol/L (3.5-5.1); Sodium 140 mmol/L (136-145)
== END 2023-01-09 10:48 | disposition home or self-care (01) ==
LOC: NCHCN 10:47
PROVIDERS: PCP Nurse Practitioner Family; Visit Provider Nurse Practitioner Family
DX: N89.8 Other specified noninflammatory disorders of vagina (principal); E87.6 Hypokalemia; R82.998 Other abnormal findings in urine; R73.09 Other abnormal glucose
CPT/HCPCS: 80048; 81003; 81015; 87086

== ENCOUNTER 2023-07-14 11:22 | Outpatient (REF) | payer MEDICARE, SELFPAY ==
[2023-07-14 19:30] LABS: ALT 36 U/L (14-59); AST 25 U/L (15-37); Albumin 3.9 g/dL (3.4-5.0); Alkaline Phosphatase 95 U/L (46-116); Anion Gap 8.8 mmol/L (3-11); BUN 15 mg/dL (7-18); Bilirubin, Total 0.4 mg/dL (0.2-1.0); CO2 28.2 mmol/L (21.0-32.0); CREATININE 0.8 mg/dL (0.55-1.02); Calcium 9.4 mg/dL (8.5-10.1); Chloride 105 mmol/L (98-107); Estimated GFR 75.84 (mL/min/1.73m2); Glucose 114 mg/dL (74-106); Potassium 3.8 mmol/L (3.5-5.1); Sodium 142 mmol/L (136-145); Total Protein 7.3 g/dL (6.4-8.2)
== END 2023-07-14 11:23 | disposition home or self-care (01) ==
LOC: NCHCN 11:22
PROVIDERS: PCP Nurse Practitioner Family; Visit Provider Nurse Practitioner Family
DX: I10 Essential (primary) hypertension (principal)
CPT/HCPCS: 80053

== ENCOUNTER 2023-09-04 15:40 | Outpatient (REF) | payer MEDICARE, SELFPAY ==
[2023-09-04 19:40] LABS: TSH 3.93 uIU/Ml (0.36-3.74)
== END 2023-09-04 15:41 | disposition home or self-care (01) ==
LOC: NCHCN 15:40
PROVIDERS: PCP Nurse Practitioner Family; Visit Provider Nurse Practitioner Family
DX: R05.9 Cough, unspecified (principal)
CPT/HCPCS: 84443

== ENCOUNTER 2024-03-23 15:35 | Outpatient (REF) | payer MEDICARE, SELFPAY ==
[2024-03-23 20:27] LABS: TSH 3.73 uIU/mL (0.36-3.74)
== END 2024-03-23 15:36 | disposition home or self-care (01) ==
LOC: NCHCN 15:35
PROVIDERS: PCP Nurse Practitioner Family; Visit Provider Nurse Practitioner Family
DX: E03.9 Hypothyroidism, unspecified (principal)
CPT/HCPCS: 84443

== ENCOUNTER 2024-08-23 10:32 | Outpatient (REF) | payer MEDICARE, SELFPAY ==
[2024-08-23 19:52] LABS: ALT 30 U/L (14-59); AST 25 U/L (15-37); Albumin 3.9 g/dL (3.4-5.0); Alkaline Phosphatase 93 U/L (46-116); Anion Gap 8.2 mmol/L (3-11); BUN 22 mg/dL (7-18); Bilirubin, Total 0.8 mg/dL (0.2-1.0); CO2 30.8 mmol/L (21.0-32.0); CREATININE 0.7 mg/dL (0.55-1.02); Calcium 9.5 mg/dL (8.5-10.1); Calculated LDL 62 mg/dL (<100); Chloride 105 mmol/L (98-107); Cholesterol 172 mg/dL (<200); Estimated GFR 88.47 (mL/min/1.73m2); Glucose 135 mg/dL (74-106); HDL Cholesterol 56 mg/dL (>or=50); Potassium 3.8 mmol/L (3.5-5.1); Sodium 144 mmol/L (136-145); Total Protein 7.3 g/dL (6.4-8.2); Triglyceride 271 mg/dL (<150)
== END 2024-08-23 10:33 | disposition home or self-care (01) ==
LOC: NCHCN 10:32
PROVIDERS: PCP Nurse Practitioner Family; Visit Provider Nurse Practitioner Family
DX: I10 Essential (primary) hypertension (principal)
CPT/HCPCS: 80053; 80061